=== PATIENT | female | born 1995 | race African-American/Black ===

== ENCOUNTER → 2021-08-30 | Outpatient (CLI) | payer OTHER | LOC: COL.CARD 09:29 | DX: R55 Syncope and collapse (principal); R42 Dizziness and giddiness ==

== ENCOUNTER 2021-10-21 07:59 | Outpatient (CLI) | payer OTHER ==
[~2021-10-21] VITALS: Ht 162.6 cm; Wt 74.3 kg
[2021-10-21] MEDS ORDERED: NATURAL MAGNES200 MG PO (08:23)
[2021-10-21] MEDS ORDERED: PROFE180 MG PO (08:23)
[2021-10-21] MEDS ORDERED: BIRTH CONTROL PO (08:24)
[2021-10-21 08:30] VITALS: BP 129/72; PULSE 84; TEMP 98.2
[2021-10-21] MEDS ORDERED: MAG-OX 400400 MG/TAB PO (08:37)
[2021-10-21] MEDS ORDERED: FERRO-TIME325 MG PO (08:37)
[2021-10-21] MEDS ORDERED: PROAIR DIGIHAL90 MCG IH (08:38)
--- NOTE | 2021-10-21 09:11 | NUR ---
SPECIAL CLIENT BUS DRIVER RN BEDSIDE TO TAKE PT DOWN.
--- NOTE | 2021-10-21 10:59 | NUR ---
IV AND MONITOR DC'D. PT DRESSED. DISCHARGE AND FOLLOW UP INSTRUCTIONS DISCUSSED WITH PT. PT WALKED OUT FOR DISCHARGE.
== END 2021-10-24 11:30 ==
LOC: COL.CAR 07:59
DX: R55 Syncope and collapse (principal); R42 Dizziness and giddiness; R00.2 Palpitations; G43.909 Migraine, unspecified, not intractable, without status migrainosus; Z87.898 Personal history of other specified conditions; Z79.899 Other long term (current) drug therapy